=== PATIENT | female | born 1935 | race Caucasian/White ===

== ENCOUNTER 2016-08-13 12:46 | Inpatient (IN) | payer OTHER ==
[~2016-08-13] VITALS: Ht 157.5 cm; Wt 49.8 kg
[~2016-08-13 12:46] MED LIST: ACYCLOVIR400 MG PO; ALLOPURINOL300 MG PO; ASPIR 8181 M1 PO; ASPIR-TRIN325 M1 PO; ASPIRIN325 MG PO; BENADRYL25 MG PO; CALCIUM 600 +1 EA12 PO; CARBIDOPA-LEVO1 EA13 PO; CELEBREX200 MG PO; CITRACAL + D E1 EACH PO; CITRATE OF MAG296 ML PO; CLARITIN10 MG PO; CLONAZEPAM0.5 MG PO; COMPAZINE10 MG PO; DIAZEPAM2 MG PO; DOXYCYCLINE HYC20 MG PO; ENTACAPONE200 MG PO; FLEXERIL10 MG PO; FLEXERIL5 MG PO; FLUOXETINE HCL20 MG PO; GABAPENTIN100 MG PO; HYDROCODON-ACE1 EAC8 PO; IBUPROFEN200 M1 PO; KLONOPIN0.5 M1 PO; LEVAQUIN750 MG PO; MIRALAX17 GM PO; MIRALAX255 GM PO; MOTRIN600 MG PO; NEURONTIN100 MG PO; NEURONTIN300 MG PO; NORCO 7.5/321 TABLET PO; OMEPRAZOLE40 M1 PO; ROBITUSSIN NIG118 ML PO; STALEVO 125 TA1 EACH PO; STALEVO 200 TA1 EACH PO; STALEVO PO; SYSTANE BALANCE10 ML BOTH EYES; VITAMIN D31000 UNI2 PO; VITAMIN D35000 UNIT PO; VITAMIN D5000 UNIT PO
[2016-08-13 13:33] LABS: MEAN PLAT.VOLUME 9.3 uM^3 (9.5-12.4); PLATELET COUNT 576 K/uL (156-360)
[2016-08-13 13:34] LABS: ADD MIUA? YES; BILIRUBIN NEGATIVE; BLOOD NEGATIVE; COLOR YELLOW ((YELLOW)); GLUCOSE (STRIP) NEGATIVE; KETONES NEGATIVE; LEUKOCYTES NEGATIVE; NITRITE NEGATIVE; PROTEIN (STRIP) >=300; SPECIFIC GRAVITY 1.021 (1.000-1.030); UROBILINOGEN 0.2 MG/DL (0.2-1.0)
[2016-08-13 13:43] LABS: CHLORIDE 111 mEq/L (99-109); POTASSIUM 3.7 mEq/L (3.7-5.4); SODIUM 148 mEq/L (136-147)
[2016-08-13 13:46] LABS: GLUCOSE 124 mg/dL (70-99)
[2016-08-13 13:47] LABS: ANION GAP 16 MEQ/L (2-14); TOTAL BILIRUBIN 0.6 mg/dL (0.0-1.0)
[2016-08-13 13:49] LABS: ALKALINE PHOSPHATASE 166 IU/L (3-129); GFR ESTIMATE (CALCULATED) 46 mL/min/
[2016-08-13 13:50] LABS: UREA NITROGEN (BUN) 41 mg/dL (9-23)
[2016-08-13 13:53] LABS: CREATINE KINASE 134 IU/L (1-294); LIPASE 23 U/L (1.0-51.0); TOTAL CK 134 IU/L (1-294)
[2016-08-13 13:54] LABS: TROP-I INTERPRETATION NEGATIVE; TROPONIN-I 0.16 ng/mL (0.0-0.30)
[2016-08-13 14:04] LABS: HEMATOCRIT 29.4 % (36.0-46.0); MCH 27.8 PG (29.0-34.0); MCHC 30.6 G/DL (30.0-36.0); MCV 90.7 FL (83-99); RBC DIS.WIDTH-CV 16.1 % (11.8-14.6); RBC DIS.WIDTH-SD 51.8 % (39-53); RED BLOOD COUNT 3.24 M/uL (3.80-5.20); WHITE BLOOD COUNT 129.9 K/uL (4.1-10.2)
[2016-08-13 14:10] LABS: DELETE MACHINE DIFF? YES
[2016-08-13 14:19] LABS: EPITHELIAL CELLS RARE /HPF; MUCUS NONE SEEN /LPF; RED BLOOD CELLS NONE SEEN /HPF (0-5); WHITE BLOOD CELLS RARE /HPF (0-5)
[2016-08-13 14:20] LABS: AMORPHOUS URATES CRYSTALS 3+; BACTERIA 1+ /HPF; CASTS NONE SEEN /LPF; CRYSTALS NONE SEEN; UCUL ADDED? NO
[2016-08-13 14:50] LABS: ABS NEUTROPHIL COUNT 16.89; ANISOCYTOSIS 1+; MACROCYTES OCC; PLAT.SUFFICIENCY INCREASED; USER ID CCL
[2016-08-13 16:00] LABS: INFLUENZA A VIRAL ANTIGEN NEGATIVE; INFLUENZA B VIRAL ANTIGEN NEGATIVE
[2016-08-13] MEDS ORDERED: ASPIRIN325 MG PO (16:21)
[2016-08-13] MEDS ORDERED: CALCIUM 600 +1 EA12 PO (16:22)
[2016-08-13] MEDS ORDERED: CYMBALTA60 MG PO (16:23)
[2016-08-13] MEDS ORDERED: STALEVO 200 TA1 EACH PO (16:23)
[2016-08-13] MEDS ORDERED: CYMBALTA30 MG PO (16:23)
[2016-08-13] MEDS ORDERED: MIRALAX17 GM PO (16:25)
[2016-08-13] MEDS ORDERED: FLONASE16 G1 BOTH NARES (16:25)
[2016-08-13] MEDS ORDERED: TYLENOL EXTRA500 MG PO (16:26)
[2016-08-13] MEDS ORDERED: BUSPAR5 MG PO (16:26)
[2016-08-13 16:30] LABS: BASE EXCESS -0.1 mEq/L (-3 to +3); BICARBONATE 23.1 mEq/L (22-26); CARBOXY HGB 2.2 % (0-5); METHEMOGLOBIN 1.4 % (0-1.5)
[2016-08-13 16:31] LABS: PCO2 31 mm Hg (35-45); pH 7.48 (7.35-7.45)
[2016-08-13 16:32] LABS: COMMENTS - BLOOD GASES A+C+; DEVICE NC; O2 FLOW 2 L/MIN; SITE RR; TOTAL RESP RATE 28 resp/min
[2016-08-13 17:40] VITALS: BP 140/66
[2016-08-13 19:50] VITALS: BP 133/98
[2016-08-13 23:47] VITALS: BP 136/93
[2016-08-14 03:45] VITALS: BP 150/90
[2016-08-14 07:08] VITALS: BP 123/82
[2016-08-14 07:34] LABS: ANION GAP 15 MEQ/L (2-14); CHLORIDE 115 MEQ/L (99-109); GFR ESTIMATE (CALCULATED) 56 mL/min/; GLUCOSE 109 mg/dL (70-99); POTASSIUM 3.9 MEQ/L (3.7-5.4); SAMPLE HEMOLYSIS CHECK 0; SAMPLE ICTERIC CHECK 0; SAMPLE LIPEMIA CHECK 0; SODIUM 152 MEQ/L (136-147); UREA NITROGEN (BUN) 34 mg/dL (9-23)
[2016-08-14 07:48] LABS: ABS NEUTROPHIL COUNT 19.65; ANISOCYTOSIS 1+; BURR CELLS RARE; HEMATOCRIT 27.5 % (36.0-46.0); MACROCYTES OCC; MCH 28.7 PG (29.0-34.0); MCHC 31.3 G/DL (30.0-36.0); MCV 91.7 FL (83-99); MEAN PLAT.VOLUME 9.8 uM^3 (9.5-12.4); PLAT.SUFFICIENCY INCREASED; PLATELET COUNT 510 K/uL (156-360); RBC DIS.WIDTH-CV 16.6 % (11.8-14.6); RBC DIS.WIDTH-SD 53.4 % (39-53); SEG.NEUTROPHILS 14.5 % (46.0-76.0); TARGET CELLS OCC; USER ID CCL; WHITE BLOOD COUNT 135.5 K/uL (4.1-10.2)
[2016-08-14 07:49] LABS: DELETE MACHINE DIFF? YES
[2016-08-14 12:35] VITALS: BP 163/91
[2016-08-14 15:27] VITALS: BP 127/86
[2016-08-14 15:41] LABS: ANION GAP 15 MEQ/L (2-14); CHLORIDE 118 MEQ/L (99-109); GFR ESTIMATE (CALCULATED) 51 mL/min/; GLUCOSE 100 mg/dL (70-99); POTASSIUM 3.3 MEQ/L (3.7-5.4); SAMPLE HEMOLYSIS CHECK 0; SAMPLE ICTERIC CHECK 0; SAMPLE LIPEMIA CHECK 0; SODIUM 156 MEQ/L (136-147); UREA NITROGEN (BUN) 38 mg/dL (9-23)
[2016-08-14 15:45] LABS: TROP-I INTERPRETATION NEGATIVE; TROPONIN-I 0.22 ng/mL (0.0-0.30)
[2016-08-14 19:59] VITALS: BP 120/72
[2016-08-14 21:14] LABS: TROP-I INTERPRETATION NEGATIVE; TROPONIN-I 0.15 ng/mL (0.0-0.30)
[2016-08-15 00:02] VITALS: BP 172/58
[2016-08-15 01:41] LABS: BASE EXCESS 4.2 mEq/L (-3 to +3); BICARBONATE 29.2 mEq/L (22-26); CARBOXY HGB 3.4 % (0-5); COMMENTS - BLOOD GASES A+C+; METHEMOGLOBIN 2.4 % (0-1.5); O2 FLOW 7 L/MIN; PCO2 45 mm Hg (35-45); PO2 70 mm Hg (80-100); SITE RR; pH 7.42 (7.35-7.45)
[2016-08-15 01:42] LABS: DEVICE HFNC; TOTAL RESP RATE 36 resp/min
[2016-08-15 03:45] VITALS: BP 144/71
[2016-08-15 07:10] VITALS: BP 136/70
[2016-08-15 07:38] LABS: MEAN PLAT.VOLUME 10.5 uM^3 (9.5-12.4); PLATELET COUNT 507 K/uL (156-360)
[2016-08-15 08:01] LABS: ALKALINE PHOSPHATASE 140 IU/L (3-129); ANION GAP 11 MEQ/L (2-14); CHLORIDE 119 MEQ/L (99-109); GFR ESTIMATE (CALCULATED) 51 mL/min/; SAMPLE HEMOLYSIS CHECK 0; SAMPLE ICTERIC CHECK 0; SAMPLE LIPEMIA CHECK 0; SODIUM 156 MEQ/L (136-147); TOTAL BILIRUBIN 0.3 MG/DL (0.0-1.0); UREA NITROGEN (BUN) 46 mg/dL (9-23)
[2016-08-15 08:04] LABS: GLUCOSE 156 mg/dL (70-99); POTASSIUM 4.3 MEQ/L (3.7-5.4)
[2016-08-15 08:23] LABS: MCH 27.6 PG (29.0-34.0); MCV 95.4 FL (83-99); RBC DIS.WIDTH-SD 56.3 % (39-53); RED BLOOD COUNT 3.04 M/uL (3.80-5.20)
[2016-08-15 08:24] LABS: DELETE MACHINE DIFF? YES; WHITE BLOOD COUNT 144.3 K/uL (4.1-10.2)
[2016-08-15 09:48] LABS: ABS NEUTROPHIL COUNT 12.26; ANISOCYTOSIS OCC; HYPOCHROMASIA OCC; PLAT.SUFFICIENCY INCREASED; ROULEAUX OCC; SEG.NEUTROPHILS 8.5 % (46.0-76.0); USER ID CL
[2016-08-15 11:02] VITALS: BP 140/75
[2016-08-16 13:11] LABS: Flow Clinical Information R/O LYMPHOMA (()); Flow Number of Markers 22 (()); Flow Spec Viability 97 % (()); Flow Specimen Type PERIPHERAL BLOOD (())
[2016-08-16 22:01] VITALS: BP 00/00
== END 2016-08-17 13:46 | DRG 871 ==
LOC: EME 12:46 → EDOF 15:23 → 2EAST 15:23 → 5EAST 15:23 → EDOF 16:17 → 2EAST 17:08 → 5EAST 08-15 14:43
PROVIDERS: Emergency Medicine; Family Medicine; Hospitalist; Physician Assistant
DX: A40.3 Sepsis due to Streptococcus pneumoniae (principal); G93.40 Encephalopathy, unspecified; J13 Pneumonia due to Streptococcus pneumoniae; J69.0 Pneumonitis due to inhalation of food and vomit; J96.01 Acute respiratory failure with hypoxia; Z51.5 Encounter for palliative care; Z66 Do not resuscitate; C91.12 Chronic lymphocytic leukemia of B-cell type in relapse; C85.90 Non-Hodgkin lymphoma, unspecified, unspecified site; E87.0 Hyperosmolality and hypernatremia; I47.1 Supraventricular tachycardia; M47.812 Spondylosis without myelopathy or radiculopathy, cervical region; J32.4 Chronic pansinusitis; G89.4 Chronic pain syndrome; D64.9 Anemia, unspecified; G20 Parkinson's disease; F03.90 Unspecified dementia, unspecified severity, without behavioral disturbance, psychotic disturbance, mood disturbance, and anxiety; K21.9 Gastro-esophageal reflux disease without esophagitis; M81.0 Age-related osteoporosis without current pathological fracture; M19.90 Unspecified osteoarthritis, unspecified site; F32.9 Major depressive disorder, single episode, unspecified; Z86.718 Personal history of other venous thrombosis and embolism
CPT/HCPCS: 36600; 70450; 71010; 74176; 80048; 80048 91; 80053; 80202; 81003; 82550; 82553; 82803; 83605; 83690; 84484; 85025; 87040; 87077; 87181; 87449; 87502; 87801; 88184 90; 88185 90; 88189 90; 93005; 94640; 94640 76; 94799; 99202; 99281; 99285; J0456; J0696; J1644; J1940; J1956; J2270; J2543; J3370; J3480; J7030; J7050; J7070; J7120

== ENCOUNTER 2016-08-17 13:45 | Inpatient (IN) | payer OTHER ==
[~2016-08-17 13:45] MED LIST changes: +BUSPAR5 MG PO; +CYMBALTA30 MG PO; +CYMBALTA60 MG PO; +FLONASE16 G1 BOTH NARES; +TYLENOL EXTRA500 MG PO
== END 2016-08-19 08:30 | DRG 871 ==
LOC: 5EAST 13:45
DX: A41.9 Sepsis, unspecified organism (principal); J18.9 Pneumonia, unspecified organism; G92 Toxic encephalopathy; J96.01 Acute respiratory failure with hypoxia; E87.0 Hyperosmolality and hypernatremia; C91.10 Chronic lymphocytic leukemia of B-cell type not having achieved remission; N17.9 Acute kidney failure, unspecified; D72.829 Elevated white blood cell count, unspecified; M47.9 Spondylosis, unspecified; Z51.5 Encounter for palliative care; Z66 Do not resuscitate
CPT/HCPCS: 94799; J2060; J2270